=== PATIENT | male | born 1990 ===

== ENCOUNTER 2020-12-16 11:58 | Emergency (ER) | payer MEDICAID ==
[~2020-12-16] VITALS: Ht 175.3 cm; Wt 63.6 kg
[2020-12-16] MEDS ORDERED: acetaminophen 325mg tablet PO ONE (14:35)
[2020-12-16] MEDS ORDERED: ketorolac trometh. 30mg/ml inj. IM ONE (14:35)
[2020-12-16 15:35] VITALS: BP 126/84
== END 2020-12-16 15:40 | disposition home or self-care (01) ==
LOC: ER 11:59
DX: S93.491A Sprain of other ligament of right ankle, initial encounter (principal); F12.90 Cannabis use, unspecified, uncomplicated; F15.90 Other stimulant use, unspecified, uncomplicated; Z72.89 Other problems related to lifestyle; Z59.0 Homelessness; W18.39XA Other fall on same level, initial encounter; Y93.89 Activity, other specified; Y92.89 Other specified places as the place of occurrence of the external cause; Y99.8 Other external cause status
CPT/HCPCS: 73590; 73610; 73630; 96372; 99284; J1885